=== PATIENT | female | born 1990 | race Caucasian/White ===

== ENCOUNTER 2022-05-21 13:57 | Emergency (ER) | payer OTHER ==
[2022-05-21 14:12] VITALS: BP 143/88; PULSE 88; RESP 19; TEMP 98.9; BMI 26.9
[2022-05-21] MEDS ORDERED: SODIUM CHLORIDE 0.9% 500 ML INFUS.BAG IV ONE (15:23)
[2022-05-21] MEDS ORDERED: ACETAMINOPHEN 1000 MG/100 ML BAG IVPB ONE (15:23)
[2022-05-21 15:57] LABS: BASO % 0.5 % (0-2.0); EOS % 0.5 % (0-4.5); HEMATOCRIT 37.5 % (32.4-45.2); LYMPH % 38.1 % (8-40); MCH 29.9 pg (25.7-33.7); MCHC 34.7 g/dl (32.0-36.0); MEAN CELL VOLUME 86.2 fl (80-96); MEAN PLT VOLUME 6.9 fl (7.5-11.1); MONO % 11.4 % (3.8-10.2); NEUT % 49.5 % (42.8-82.8); PLATELET COUNT 267 10^3/uL (134-434); RBC 4.35 M/mm3 (3.60-5.2); RDW 13.1 % (11.6-15.6); WHITE BLOOD COUNT 3.3 K/mm3 (4.0-10.0)
[2022-05-21 16:06] LABS: INR 1.27 (0.83-1.09); PROTHROMBIN TIME (PATIENT) 14.7 SEC (9.7-13.0)
[2022-05-21 16:14] LABS: EPI CELLS 5 /uL (0-25.1); HCG,QUALITATIVE URINE Negative; HYALINE CASTS 0 /uL (0-3.1); URINE APPEARANCE CLEAR; URINE BACTERIA 40 /uL (0-1359); URINE BILIRUBIN NEGATIVE (NEGATIVE); URINE COLOR YELLOW; URINE GLUCOSE (UA) NEGATIVE (NEGATIVE); URINE KETONE NEGATIVE (NEGATIVE); URINE LEUK ESTERASE NEGATIVE (NEGATIVE); URINE NITRITE NEGATIVE (NEGATIVE); URINE PROTEIN NEGATIVE (NEGATIVE); URINE RBC 11 /uL (0-23.9); URINE UROBILINOGEN 0.2 mg/dL (0.2-1.0); URINE WBC 2 /uL (0-25.8)
[2022-05-21 16:18] LABS: CALCIUM 8.6 mg/dL (8.5-10.1)
[2022-05-21 16:19] LABS: BLOOD UREA NITROGEN 8.2 mg/dL (7-18)
[2022-05-21 16:22] LABS: CREATININE 0.6 mg/dL (0.55-1.3)
[2022-05-21 16:24] LABS: BILIRUBIN,TOTAL 0.2 mg/dL (0.2-1); TOT PROT 7.7 g/dl (6.4-8.2)
[2022-05-21 17:20] LABS: ERYTHROCYTE SEDIMENTATION RATE 36 mm/hr (0-20)
== END 2022-05-21 18:52 | disposition home or self-care (01) ==
LOC: JER 13:57
PROC: 3E033GC Introduction of Other Therapeutic Substance into Peripheral Vein, Percutaneous Approach (ICD-10-PCS; principal; 2022-05-21)
DX: R10.31 Right lower quadrant pain (principal)
CPT/HCPCS: 0241U-QW; 36415; 74177-TC; 80053; 81003; 84703; 85025; 85610; 85651; 86140; 86850; 86900; 86901; 87086; 99285-25; Q9967